=== PATIENT | female | born 1945 | race Caucasian/White ===

== ENCOUNTER 2025-05-30 09:42 | Outpatient (REF) | payer OTHER, SELFPAY ==
--- OUTSIDE RECORDS SUMMARY | 2025-05-30 11:13 | XMS_ITS | Clinical Summary ---
Author Organization [employer] Address [address] [facility] 7t [place] [address] Care Team Providers Care Agricultural Inspector Name Role Phone Unavailable Primary Care Provider Unavailabl e Encounters Date Type Department Care Team Description 03/18/2025 Telephone [facility] [address] [place], [place] [id number] Leandro Valdez MD Appointment Request 03/18/2025 Telephone [facility] INS ENROLLMENT [address] [place], [place] [id number] Brenda Roca MD from Last 3 Months Social History Tobacco Use Types Packs/Day Years Used Date Smoking Tobacco: Never Assessed Comments Unknown Sex and Gender Information Value Date Recorded Sex Assigned at Not on file Legal Sex Female 10:24 AM EDT Gender Identity Not on file Sexual Orientation Not on file Plan of Treatment Health Maintenance Due Date Last Done Comments Depression Screening 1945 SDOH Screening 1945 Alcohol/Substance Use Screening 1956 Tobacco Screening 1957 DTaP/Tdap/Td Vaccines (1 - Tdap) 12/25/1963 Pneumococcal Vaccine: 50+ Ye ars (1 of 1 - PCV) 1994 Zoster Vaccines (1 of 2) 1994 RSV Patients and Pa tients Aged 60 years or older (1 - 1-dose 75+ series) 12/25/2019 COVID-19 Vaccine ( - 2024-2 6 season) 2025 Influenza Vaccine (#1) 2025 HIB Vaccines Aged Out No longer eligi ble based on patient's age to complete this topic HPV Vaccines Aged Out No longer eligi ble based on patient's age to complete this topic Hepatitis A Vaccines Aged Out No long er eligible based on patient's age to complete this topic Hepatitis B Vaccines Aged Out No long er eligible based on patient's age to complete this topic IPV Vaccines Aged Out No longer eligi ble based on patient's age to complete this topic Meningococcal B Vaccine Aged Out No l onger eligible based on patient's age to complete this topic Meningococcal Vaccine Aged Out No onur francesco eligible based on patient's age to complete this topic RSV under 20 months Aged Out No longe r eligible based on patient's age to complete this topic Rotavirus Vaccines Aged Out No longer eligible based on patient's age to complete this topic Insurance [facility] STANDARD
--- OUTSIDE RECORDS SUMMARY | 2025-05-30 11:13 | XMS_ITS | Encounter Summary ---
Author Organization [facility] Address [address] [place] [address] [place] [phone] Phone Care Team Providers Care Boiler Helper Name Role Phone Pcp, Unknown Primary Care Provider Unavailabl e Reason for Visit * Reason Onset Date Comments Triage 03/23/2025 Sores on back + dementia + NPV Bridge Encounter Details Date Type Department Care Team ([facility] st Contact Info) Description 03/23/[address] [facility] [address] [place] [address] Pcp, Unknown Triage (Sores on back + dementia + NPV Bridge) Social History Tobacco Use Types Packs/Day Years Used Date Smoking Tobacco: Never Assessed Education Answer Date Recorded Are you interested in more education? Not on jennifer e 02/11/2025 Are you concerned about learning? Not on file 02/11/2025 No 02/11/2025 No 02/11/2025 Digital Access Answer Date Recorded No 02/11/2025 No 02/11/2025 Reliable internet access at home? Not on file 02/11/2025 Device with a working camera? Not on file Comments Unknown Sex and Gender Information Value Date Recorded Sex Assigned at Not on file Legal Sex Female 11:00 AM EDT Gender Identity Not on file Sexual Orientation Not on file documented as of this encounter Progress Notes * Marsha Chan - 04/01/2025 2:21 PM EDT Pt seen 03/25/25 * Kira Arredondo - 03/23/2025 11:21 AM EDT Delaney called back in. There is no form that needs to be filled out for the adult foster care. They just need a physical. Please call Delaney about the soonest this could be booked. Central Support Rn Trauma (Please do not reply to this user; this inbox is not monitored.) Thank you. * Arina Farrell, RN - 03/23/2025 10:19 AM EDT Spoke with Delaney. Bridge visit okay to schedule per . States the patient is also in need of physical. Advised that this bridge visit can only be for discussion of dementia and wound care. Advised will reach out to my field manager in regards to need for physical for adult day care placement. Bridge visit scheduled for 03/25 at 1:20PM. Verbalized understanding. Delaney states she will obtain records that she currently has access to and sign release for other records at time of appointment. * Kathy Chavez MD - 03/23/2025 10:12 AM EDT Ok for bridge visit, to schedule with me or available provider Thank you * Fe Beltran - 03/23/2025 9:57 AM EDT Pt's medical proxy Delaney called in to schedule NPV for pt. Pt moved from [place] to live with family dueto worsening dementia. Pt was prescribed medication for dementia by previous provider and has 60 days of medication left. Pt is no longer under the care of previous provider. Pt will need further assessment for dementia. Pt has open sores on her back and was seen at but sores are not healing. Pthas nervous picking at sores that get infected often. Pt's mobility is deteriorating dementia has worsened in the last 2 months. Please contact Delaney regarding a bridge visit. Please contact and advise. Central Support Rn Trauma (Please do not reply to this user; this inbox is not monitored.) Thank you. documented in this encounter Plan of Treatment Not on file documented as of this encounter Visit Diagnoses Not on filedocumented in this encounter Care Teams Boiler Helper Relationship Specialty Start Date End Date Pcp, Unknown PCP - General 02/11/25 documented as of this encounter Additional Source Comments The information contained in this document represents components of the legal health record. It is not the complete legal health record.[facility]
--- OUTSIDE RECORDS SUMMARY | 2025-05-30 11:13 | XMS_ITS | Clinical Summary ---
Author Organization [facility] Address [address] [place] [phone] Phone Care Team Providers Care Tennis Court Attendant Name Role Phone Pcp, Unknown Primary Care Provider Unavailabl e Medications donepeziL (ARICEPT) 10 MG tablet Take 1 tablet (10 mg total) by mouth nightly at bedtime. 90 tablet 1 Active spironolactone (ALDACTONE) 100 MG tablet Take 1 tablet (100 mg total) by mouth daily. Active hydroCHLOROthiazide 12.5 mg capsule Take 1 capsule (12.5 mg total) by mouth daily. Active albuterol 90 mcg/actuation inhaler Inhale 2 puffs into the lungs every 6 (six) hours as needed for wheezing. Active colchicine (COLCRYS) 0.6 mg tablet Take 1 tablet (0.6 mg total) by mouth daily. Active pravastatin (PRAVACHOL) 10 MG tablet Take 1 tablet (10 mg total) by mouth daily. Active clonazePAM (KLONOPIN) 1 MG tablet Take 1 tablet (1 mg total) by mouth 2 (two) times a day as needed for anxiety. Active clobetasol (TEMOVATE) 0.05 % creamIndications:In trinsic eczema Apply bid to affected areas for 14 days 60 g 1 5 Active levothyroxine (SYNTHROID, LEVOTHROID) 100 MCG tabletIndications:P ostoperative hypothyroidism Take 1 tablet (100 mcg total) by mouth every morning. 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 Stage 3a chronic kidney disease 03/25/2025 Encounter for annual physical exam 03/25/2025 Encounters Date Type Department Care Team Description 04/29/2025 Telephone [facility] [address] [place] [address] Todd Cabrera MD Referral (Neurology) 04/06/2025 Telephone [facility] [address] [place] [address] Elisa Guevara MA Medication Prior Authorization (clobetasol (TEMOVATE) 0.05 % cream) 04/05/2025 Telephone [facility] [address] [place] [address] Nette Ramos LPN Results 04/05/2025 Telephone [facility] [address] [place] [address] Elisa Guevara MA Medication Prior Authorization (clobetasol (TEMOVATE) 0.05 % cream) 04/05/2025 Orders Only [facility] [address] [place] [address] Todd Cabrera MD Intrinsic eczema (Primary Dx) 04/04/2025 11:09 AM EDT - 04/04/2025 11:59 PM EDT Hospital Encounter [facility] [address] [place] [address] Todd Cabrera MD Discharge Disposition: Home or Self Care 04/01/2025 Telephone [facility] [address] [place] [address] Kathy Chavez MD Forms & Paperwork 03/25/2025 1:20 PM EDT Office Visit [facility] Primary Care [facility] [address] [place] [address] Todd Cabrera MD Essential hypertension (Primary Dx); Postoperative hypothyroidism; Pure hypercholesterolemia; Familial Mediterranean fever; Anxiety; Memory loss; Intrinsic eczema; Sarcoidosis; Primary osteoarthritis, unspecified site; Obsessive-compulsive disorder, unspecified type; History of thymectomy; Stage 3a chronic kidney disease; 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; Encounter for annual physical exam 03/23/2025 Telephone [facility] [address] [place] [address] Pcp, Unknown Triage (Sores on back + dementia + NPV Bridge) from Last 3 Months Immunizations Immunization Administration Dates Next Due Influenza High-Dose Trivalent Preservative Free IM 03/25/2025 Social History Tobacco Use Types Packs/Day Years [...] on file Sexual Orientation Not on file Last Filed Vital Signs Vital Sign Reading Time Taken Comments Blood Pressure 122/62 03/25/2025 1:00 PM EDT Pulse 65 03/25/2025 1:00 PM EDT Temperature 36.7 C (98 F) 03/25/2025 1:00 PM EDT Respiratory Rate - - Oxygen Saturation 98% 03/25/2025 1:00 PM EDT Inhaled Oxygen Concentration - - Weight 62.6 kg (138 lb) 03/25/2025 1:00 PM EDT Height - - Body Mass Index - - Plan of Treatment Health Maintenance Due Date Last Done Comments Adult Td,Tdap Booster 1945 DEPRESSION SCREENING 1956 SMOKING Hx and SMOKELESS TOB ACCO SCREENING 1957 PNEUMOCOCCAL VACCINES (50+ y ears) (1 of 1 - PCV) 1994 ZOSTER VACCINES (1 of 2) 1994 OSTEOPOROSIS SCREENING INITI AL (ONE-TIME) 2009 RSV VACCINE (1 - 1-dose 75+ series) 12/25/2019 COVID-19 VACCINE (1 - 2024-2 6 season) 2025 BLOOD PRESSURE 09/23/2025 03/25/2025 POTASSIUM LEVEL 04/04/2026 04/04/2025 TSH LEVEL 04/04/2026 04/04/2025 LIPID PANEL 04/04/2030 04/04/2025 INFLUENZA VACCINE Completed 03/25/2025 HEPATITIS A VACCINES Aged Out No long er eligible based on patient's age to complete this topic HIB VACCINES Aged Out No longer eligi ble based on patient's age to complete this topic MENINGOCOCCAL VACCINES (ACWY) Aged Out No longer eligible based on patient's age to complete this topic MENINGOCOCCAL VACCINES (B) Aged Out N o longer eligible based on patient's age to complete this topic Medical Devices Not on file Procedures Procedure Name Priority Date/Time Associated Diagnosis Comments CBC AND DIFFERENTIAL Routine 04/04/2025 11:09 AM EDT Essential hypertension Anxiety COMPREHENSIVE METABOLIC PANEL (CMP) Routine 04/04/2025 11:09 AM EDT Essential hypertension Anxiety LIPID PANEL Routine 04/04/2025 11:09 AM EDT Pure hypercholesterolemia THYROID STIMULATING HORMONE (TSH) Routine 04/04/2025 11:09 AM EDT Postoperative hypothyroidism from Last 3 Months Results * (ABNORMAL) Comprehensive metabolic panel (04/04/2025 11:09 AM EDT) SODIUM 136 133 - 146 mmol/L [facility] POTASSIUM 4.5 3.3 - 5.1 mmol/L [facility] CHLORIDE 100 96 - 108 mmol/L [facility] CO2 22 21 - 35 mmol/L [facility] BUN 21(H) 6 - 19 mg/dL [facility] CREATININE 0.90 0.5 - 1.5 mg/dL [facility] GLUCOSE 105(H) 70 - 99 mg/dL [facility] ALBUMIN 4.6 3.9 - 4.8 g/dL [facility] TOTAL PROTEIN 7.7 6.5 - 8.0 g/dL [facility] CALCIUM 10.4(H) 8.4 - 10.3 mg/dL [facility] ALKALINE PHOSPHATASE 81 39 - 117 U/L [facility] TOTAL BILIRUBIN 0.6 0.0 - 1.2 mg/dL [facility] AST 22 0 - 37 U/L [facility] ALT 12 0 - 40 U/L [facility] GLOBULIN 3.1 1 - 4.8 g/dL [facility] EGFR 65 >59 mL/min/1.7 3m2 [facility] Comment:Estimated glomerular filtration rate calculated using the CKD-EPI refit equation. ANION GAP 19 10 - 20 mmol/L [facility] Blood 04/04/2025 11:0 9 AM EDT 04/04/2025 11:16 AM EDT us Todd Cabrera MD LAB BLOOD BKR ORDERABLES Bonnie dobbins Result [facility] [address] [place] [address] * (ABNORMAL) CBC and differential (04/04/2025 11:09 AM EDT) WBC 9.79 4.00 - 11.00 K/uL [facility] RBC 4.23 4.00 - 5.20 M/uL [facility] HGB 13.4 12.0 - 16.0 g/dL [facility] HCT 41.0 36.0 - 46.0 % [facility] PLT 277 150 - 450 K/uL [facility] MCV 96.9 80.0 - 100.0 fL [facility] MCH 31.7(H) 27.0 - 31.0 pg [facility] MCHC 32.7 32.0 - 36.0 g/dL [facility] RDW 13.8 11.5 - 14.5 % [facility] MPV 10.8 8.4 - 12.0 fL [facility] NRBC 0.00 0.00 /100 WBCs [facility] ABSOLUTE NRBC 0.00 0.00 K/uL [facility] DIFF METHOD Auto [facility] NEUTS 69.7 48.0 - 76.0 % [facility] LYMPHS 17.5(L) 18.0 - 41.0 % [facility] MONOS 10.5 4.0 - 11.0 % [facility] EOS 1.1 0.0 - 5.0 % [facility] BASOS 0.4 0.0 - 1.5 % [facility] Granulocytes, immature (%) 0.8 0.0 - 0.9 % [facility] ABSOLUTE NEUTS 6.82 1.92 - 7.60 K/uL [facility] ABSOLUTE LYMPHS 1.71 0.72 - 4.10 K/uL [facility] ABSOLUTE MONOS 1.03 0.16 - 1.10 K/uL [facility] ABSOLUTE EOS 0.11 0.00 - 0.50 K/uL [facility] ABSOLUTE BASOS 0.04 0.00 - 0.15 K/uL [facility] Granulocytes, immature 0.08 0.00 - 0.09 K/uL [facility] Blood 04/04/2025 11:0 9 AM EDT 04/04/2025 11:16 AM EDT us Todd Cabrera MD LAB BLOOD BKR ORDERABLES Bonnie l Result Performing Organization Address City/[facility]/ZIP Co de Phone Number [address] [phone] * (ABNORMAL) TSH (04/04/2025 11:09 AM EDT) TSH 10.00(H) 0.27 - 4.20 uIU/mL [facility] Blood 04/04/2025 11:0 9 AM EDT 04/04/2025 11:16 AM EDT us Todd Cabrera MD LAB BLOOD BKR ORDERABLES Bonnie l Result [address] [address] * (ABNORMAL) Lipid panel (04/04/2025 11:09 AM EDT) HDL 94 mg/dL [facility] Comment: Interpretation <40 mg/dL: Low HDL cholesterol (major risk factor for CHD) Greater than or equal to 60 mg/dL: High HDL cholesterol ( negative risk factor for CHD) HDL - cholesterol is affected by a number of factors, e.g. smoking, excerise, hormones, sex and age. CHOLESTEROL 191 0 - 240 mg/dL [facility] TRIGLYCERIDES 87 30 - 160 mg/dL [facility] LDL 80 50 - 129 mg/dL [facility] Comment: LDL levels in terms of risk for coronary heart disease: <100 mg/dL: Optimal 100-129 mg/dL: Near or above optimal 130-159 mg/dL: Borderline high 160-189 mg/dL: High >190 mg/dL: Very High CARDIAC RISK RATIO 2.0(L) 3.3 - 4.4 C [facility] Blood 04/04/2025 11:0 9 AM EDT 04/04/2025 11:15 AM EDT Todd Cabrera MD LAB BLOOD BKR ORDERABLES Bonnie dobbins Result Performing Organization Address [facility] Co de Phone Number [address] [phone] from Last 3 Months Insurance MEDICARE PART A & B [facility] MEDIC[facility] PART A & B [address] [place], [place] [address]HEALTH MEDICARE PART A & B MEDICARE PART A & B [facility] MEDICARE PART A & B [facility] Care Teams Tennis Court Attendant Relationship Specialty Start Date End Date Pcp, Unknown PCP - General 02/11/25 Additional Source Comments The information contained in this document represents components of the legal health record. It is not the complete legal health record.[facility]
--- OUTSIDE RECORDS SUMMARY | 2025-05-30 11:13 | XMS_ITS | Encounter Summary ---
Author Organization [employer] Address [address] [facility] [address]t [place] [address] Care Team Providers Care Plastic Surgery Coordinator Name Role Phone Unavailable Primary Care Provider Unavailabl e Encounter Details Date Type Department Care Team ([facility] st Contact Info) Description 03/18/2025 Telephone [facility] ENROLL[facility] [address] [place] [address] Brenda Roca MD [address] [place] [address] Social History Tobacco Use Types Packs/Day Years Used Date Smoking Tobacco: Never Assessed Comments Unknown Sex and Gender Information Value Date Recorded Sex Assigned at Not on file Legal Sex Female 10:24 AM EDT Gender Identity Not on file Sexual Orientation Not on file documented as of this encounter Plan of Treatment Not on file documented as of this encounter Visit Diagnoses Not on filedocumented in this encounter
[2025-05-30 13:41] LABS: MANUAL DIFF FLAG NO
[2025-05-30 13:52] LABS: Hematocrit 40.3 % (37.0-47.0); Hemoglobin 13.2 g/dl (12.0-16.0); Imm Gran Abs Auto 0.05 X10*3/uL (0.00-0.03); Imm Gran Pct Auto 0.7 % (0.0-0.4); Lymphocytes Absolute Auto 2.1 X10*3/uL (1.2-4.9); Mean Corpuscular HGB Conc 32.8 g/dl (31.0-35.0); Mean Corpuscular Hemoglobin 30.9 pg (27.0-33.0); Mean Corpuscular Volume 94.4 fL (80.0-98.0); NRBC Abs Auto 0.000 X10*3/uL (0.0-0.012); NRBC Pct Auto 0.0 /100WBC (0.0-0.2); Platelet Count 289 X10*3/uL (160-400); Red Blood Count 4.27 X10*6/uL (4.20-5.50); White Blood Count 7.7 X10*3/uL (4.8-10.8)
[2025-05-30 14:49] LABS: Alanine Aminotransferase 16 U/L (0-31); Albumin Level 4.3 g/dL (3.5-5.0); Alkaline Phosphatase 77 U/L (39-117); Anion Gap 12 (12-20); Aspartate Amino Transferase 29 U/L (5-31); Blood Urea Nitrogen 30 mg/dL (9-16); Calcium 10.1 mg/dL (8.4-10.2); Carbon Dioxide 26 mmol/L (22-29); Chloride 106 mmol/L (96-108); Cholesterol 189 mg/dL (<200); Estimated Glomerular Filt Rate > 60; HDL Cholesterol 74 mg/dL (>40); Potassium 4.2 mmol/L (3.3-5.1); Sodium 140 mmol/L (135-145); Total Protein 7.3 g/dL (6.5-8.0); Triglycerides 71 mg/dL (<150)
[2025-05-30 15:41] LABS: Reflex LDLD? No
== END 2025-05-30 09:43 | disposition home or self-care (01) ==
LOC: HO.HMGCLDS 09:42
PROVIDERS: PCP Student in an Organized Health Care Education/Training Program; Visit Provider Student in an Organized Health Care Education/Training Program
DX: Z00.00 Encounter for general adult medical examination without abnormal findings (principal); Z13.220 Encounter for screening for lipoid disorders; Z13.1 Encounter for screening for diabetes mellitus; E03.9 Hypothyroidism, unspecified
CPT/HCPCS: 36415; 80053; 80061; 83036; 84443; 85025